=== PATIENT | female | born 1980 | race Hispanic/Latino ===

== ENCOUNTER 2018-05-23 05:41 | Emergency (ER) | payer SELFPAY ==
[2018-05-23 05:56] VITALS: BP 127/87
[2018-05-23] MEDS ORDERED: PERCOCET 5/325 ONE (06:20)
[2018-05-23 06:23] LABS: HCG Qualitative,Urine Negative (Negative)
--- NOTE | 2018-05-23 06:47 | Cat Scan Report ---
FINAL REPORT EXAM: CT HEAD/BRAIN WO CON HISTORY: head Injury FALL TECHNIQUE: Routine axial imaging was obtained of the brain without IV contrast. FINDINGS: The ventricular system is appropriate in size and is symmetric. There is no evidence of acute stroke or hemorrhage. There are no extra-axial fluid collections. There is no evidence of skull fracture or scalp injury. The visualized sinuses are clear. The mastoid air cells are well pneumatized. IMPRESSION: No acute intracranial process.
--- NOTE | 2018-05-23 07:19 | Emergency Department Report ---
Head Injury w/o Laceration - HPI Chief Complaint: Head Injury Stated Complaint: HIT HEAD Time Seen by Provider: 05/23/18 07:09 Occurred When: Today Mechanism: Fall Location: Temporal (right) Severity: mild Head Inj w/o Lac: Yes Nausea, Yes Headache, No Loss of Consciousness, No Blurred Vision, No Altered Mental Status, No Focal Deficit, No Swelling, No Bruising, No Break in Skin, No Bleeding Other History: This is a 37-year-old female that fell out of bed this morning and hitting her head on the nightstand. Patient states she was trying to turn off her alarm and fell out of. Hitting the right side of her body. She is now complaining of the headache with nausea that is 10 out of 10. Patient admits to nausea without vomiting. There is some bruising to right forearm from fall. Patient denies loss of consciousness, vomiting, visual changes, swelling or erythema, or active bleeding. ED General PMH - Social History Smoking Status: Never Smoker ED Neuro ROS - Review of Systems Constitutional: denies: no symptoms reported, see HPI, chills, diaphoresis, fever, malaise, weakness, other Eyes (ROS): denies: no symptoms reported, see HPI, blindness, blurred vision, vision change, drainage, decreased acuity, foreign body sensation, inflammation , pain, photophobia, previous injury, shadows, tunnel vision, contact lenses, glasses, other Ears, Nose, Mouth, Throat: denies: no symptoms reported, see HPI, ear pain, ear discharge, nose pain, nose discharge, epistaxis, mouth pain, mouth swelling, loose teeth, throat pain, throat swelling Respiratory: denies: no symptoms reported, see HPI, cough, orthopnea, short of breath, stridor, wheezing, other Cardiology: denies: no symptoms reported, see HPI, chest pain, edema, palpitations, syncope, other Gastrointestinal/Abdominal: denies: no symptoms reported, see HPI, abdominal pain, constipation, diarrhea, nausea, vomiting, other Skin: see HPI, lesions (bruising to the lateral right forearm). denies: change in color, change in hair/nails, dryness, lumps, rash Neurological: see HPI, headache. denies: no symptoms reported, anxiety, depressed, emotional problems, cognitive dysfunction, numbness, petit mal seizures, tingling, tonic-clonic seizures, unable to move lower ext, unable to move upper ext, weakness, other Head Injury W/O Lac Exam - Exam General: Vital signs noted. No distress. Alert and acting appropriately. Head: Yes Pupils are PERRL, No Hemotympanum, No Hematoma/Ecchymosis, No Epistaxis, No Stepoff/Deformity, No Laceration, No Abrasion Chest, Abd, & Ext: Yes Clear Lung Sounds, Yes Regular Heart Rhythm, No Neck Pain , No Chest Injury/Pain, No Heart Murmur, No Abdominal Tenderness, No Back Tenderness, No Extremity Injury Neuroligical (Head Inj W/O Lac: Yes Normal Speech, Yes Normal Gait, No Lethargy , No Disorientation, No Focal Numbness, No Focal Weakness Exam: Skin: One centimeter abrasion to right lateral forearm, blanchable, no active bleeding or break skin, no surrounding cellulitis. ED Disposition Clinical Impression: Migraine headache without aura Qualifiers: Status migrainosus presence: without status migrainosus Intractability: not intractable Qualified Code(s): G43.009 - Migraine without aura, not intractable , without status migrainosus Head injury Qualifiers: Encounter type: initial encounter Qualified Code(s): S09.90XA - Unspecified injury of head, initial encounter Disposition: TO HOME OR SELFCARE Is pt being admited?: No Does the pt Need Aspirin: No Condition: Stable Instructions: Migraine Headache (ED), Minor Head Injury (ED) Additional Instructions: Take medication at start of headache. Moderate caffeine intake. Eat at scheduled times or 3 meals a day with snacks. Apply ice to right side of his to prevent swelling. Follow up with primary care provider in 24-72 hours. Prescriptions: Ibuprofen [Motrin 800 MG tab] 800 mg PO Q8HR PRN #15 tablet PRN Reason: Pain, Moderate (4-6) Metoclopramide HCl [Reglan TAB] 5 mg PO TID PRN #15 tablet PRN Reason: Nausea SUMAtriptan SUCCINATE [Imitrex] 25 mg PO BID #10 tab Referrals: WINNIE SPARKS MD [Staff Physician] - 3-5 Days [facility] [Provider Group] - 3-5 Days Forms: Work/School Release Form(ED) Time of Disposition: 07:40 Print Language: AMERICAN ED Medical Decision Making - Radiology Data Radiology results: report reviewed, image reviewed EXAM: CT HEAD/BRAIN WO CON HISTORY: head Injury FALL TECHNIQUE: Routine axial imaging was obtained of the brain without IV contrast. FINDINGS: The ventricular system is appropriate in size and is symmetric. There is no evidence of acute stroke or hemorrhage. There are no extra-axial fluid collections. There is no evidence of skull fracture or scalp injury. The visualized sinuses are clear. The mastoid air cells are well pneumatized. IMPRESSION: No acute intracranial process. - Medical Decision Making This is a 37y.o. female presents with a headache and abrasions to right forearm from a falling out of bed this morning. Patient was examined by me. Vitals are normal and patient is stable. Patient given Percocet 5/325 mg by mouth once while in the ER. Urine hCG obtained and negative, CT head obtained and dictated by radiologist. No acute intracranial process. Patient given Reglan 5 mg by mouth and Toradol 30 mg IM for migraine headache. Patient informed of results. Patient states migraine use decreasing. Start ibuprofen, Zofran, and sumatriptan. Plan discussed with patient to discharge home and treat outpatient. She will follow-up with her primary care provider in 2-3 days. Patient discharged home in stable condition.
[2018-05-23] MEDS ORDERED: REGLAN PO ONE (07:30)
[2018-05-23] MEDS ORDERED: TORADOL IM ONE (07:30)
== END 2018-05-23 08:17 | disposition home or self-care (01) ==
LOC: ED 05:41 → EEVIPCON 05:41 → ED 08:17
DX: S09.90XA Unspecified injury of head, initial encounter (principal); S50.811A Abrasion of right forearm, initial encounter; G43.909 Migraine, unspecified, not intractable, without status migrainosus; Z88.6 Allergy status to analgesic agent; W06.XXXA Fall from bed, initial encounter; Y93.89 Activity, other specified; Y99.8 Other external cause status; Y92.89 Other specified places as the place of occurrence of the external cause
CPT/HCPCS: 70450; 81025; 96372; 99284; J1885

== ENCOUNTER 2019-01-11 08:44 | Outpatient (CLI) | payer BC ==
--- NOTE | 2019-01-11 09:54 | XRay Report ---
Lumbar spine 3 views: History: Back pain. Findings: Normal height of vertebral bodies and intervertebral disc. Normal articular surfaces. No fracture. No soft tissue calcification. Impression: No bony or articular abnormality lumbar spine.
--- NOTE | 2019-01-11 09:55 | XRay Report ---
Bilateral hips: History: Pain in hip. Findings: No bony or articular abnormality. No fracture or dislocation or soft tissue calcification. Impression: Essentially negative right and left hip.
== END 2019-01-11 08:45 | disposition home or self-care (01) ==
LOC: XRAY 08:44
DX: M54.40 Lumbago with sciatica, unspecified side (principal); M25.552 Pain in left hip; M25.551 Pain in right hip; Z90.49 Acquired absence of other specified parts of digestive tract
CPT/HCPCS: 72100; 73521